=== PATIENT | female | born 1995 | race Caucasian/White ===

== ENCOUNTER 2017-03-29 11:36 | Emergency (ER) | payer BC ==
[~2017-03-29] VITALS: Ht 172.7 cm; Wt 69.6 kg
[~2017-03-29 11:36] MED LIST: FEXO1TAB49 PO; MULT-506 PO
[2017-03-29 11:40] VITALS: TEMP 37.1; Ht 172.7 cm; Wt 69.6 kg
[2017-03-29 11:50] VITALS: O2SAT 99
[2017-03-29] MEDS ORDERED: APRI28 PO (12:07)
[2017-03-29] MEDS ORDERED: KETOROLAC TROMETHAMINE 30 MG/ML VIAL IV STA (12:09)
[2017-03-29] MEDS ORDERED: SODIUM CHLORIDE 0.9% 1000ML 1,000 ML IV STA (12:09)
[2017-03-29 12:38] LABS: BASO % 0.7 %; BASO ABS # 0.07 K/uL (0-0.2); COMPLETE YES; EOS % 2.1 %; HEMATOCRIT 41.2 % (37-47); IG% 0.2 %; LYMPH ABS # 2.54 K/uL (1.2-3.4); MEAN CELL VOLUME 89.4 fL (80-100); MEAN CORPUSCULAR HEMOGLOBIN 29.9 pg (25-34); MEAN CORPUSCULAR HGB CONC 33.5 g/dl (32-36); MONO % 5.4 %; NEUT % 64.6 %; PLATELET COUNT 273 K/uL (130-400); RED BLOOD COUNT 4.61 M/uL (4.2-5.4); WHITE BLOOD COUNT 9.42 K/uL (4.8-10.8)
[2017-03-29 13:00] LABS: BUN/CREATININE RATIO 19.6 (10-20); CALCIUM 9.5 mg/dl (8.5-10.1); CREATININE 0.84 mg/dl (0.60-1.20); POTASSIUM 4.2 mmol/L (3.5-5.1)
[2017-03-29 13:48] LABS: LYME DISEASE AB IGG NEG (NEG); LYME DISEASE AB IGM NEG (NEG)
--- NOTE | 2017-03-29 14:16 | EMERGENCY ROOM VISIT NOTE ---
History Report prepared by Edgar: Teddy Buchanan Under the Supervision of: Paige MontanaO. First contact with patient: 11:58 Chief Complaint: OTHER COMPLAINT Stated Complaint: NUMBNESS IN RT ARM & RT SIDE OF JAW, JOINT PAIN History of Present Illness The patient is a 21 year old female who presents to the Emergency Room with complaints of constant joint pain and numbness in her shoulder starting this morning. The patient additionally states that her heart rate is up more than normal. The patient states that she was sitting earlier when she got the pain and numbness in her shoulder. The patient denies any fever or tick exposure. The patient states that a few years ago she had something similar, and it was due to strep. The patient denies any leg swelling, chest pain, shortness of breath, or sore throat. Source of History: patient Onset: this morning Position: other (right shoulder and global) Quality: numbness Timing: constant Associated Symptoms: No fevers, No chest pain, No SOB Note: Associated symptoms: Increased heart rate Review of Systems See HPI for pertinent positives & negatives. A total of 10 systems reviewed and were otherwise negative. Past Medical & Surgical Medical Problems: (1) Concussion Family History Patient reports no known family medical history. Social History Smoking Status: Never Smoker Alcohol Use: occasionally Drug Use: none Marital Status: single Housing Status: lives with roommate Occupation Status: [employer] student Current/Historical Medications Scheduled Ethinyl Estrad/Desogestrel (Apri), 1 TAB PO DAILY Allergies Coded Allergies: NO KNOWN DRUG ALLERGIES (Verified Allergy, Mild, JUST SEASONAL ALLERGIES, 03/29/17) Uncoded Nonscreenable Allergen (Unverified Allergy, Unknown, HIVES, ) FRUITS & VEGETABLES- HIVES SEASONAL ALLERGIES Uncoded Allergies: FRUITS AND VEGETABLE (Allergy, Mild, ONLY IF RAW GETS HIVES, 10/25/15) Physical Exam Vital Signs Date Time Temp Pulse Resp B/P (MAP) Pulse Ox O2 Delivery O2 Flow Rate FiO2 03/29/17 13:50 72 16 107/61 99 Room Air 03/29/17 12:39 78 03/29/17 11:50 99 Room Air 03/29/17 11:40 37.1 83 16 135/89 99 Room Air Physical Exam CONSTITUTIONAL/VITAL SIGNS: Reviewed / noted above. GENERAL: Non-toxic in appearance. INTEGUMENTARY: Warm, dry, and [place]. HEAD: Normocephalic. EYES: without scleral icterus or trauma. ENT/OROPHARYNX: clear and moist. LYMPHADENOPATHY/NECK: Is supple without lymphadenopathy or meningismus. RESPIRATORY: Lungs clear and equal. CARDIOVASCULAR: Regular rate and rhythm. GI/ABDOMEN: Soft and nontender. No organomegaly or pulsatile mass. No rebound or guarding. Normal bowel sounds. EXTREMITIES: Warm and well perfused. BACK: No CVA tenderness. NEUROLOGICAL: Intact without focal deficits. PSYCHIATRIC: normal affect. MUSCULOSKELETAL: Normally developed with good muscle tone. Medical Decision & Procedures Laboratory Results 03/29/17 12:23 Red Blood Count 4.61, Mean Corpuscular Volume 89.4, Mean Corpuscular Hemoglobin 29.9, Mean Corpuscular Hemoglobin Concent 33.5, Mean Platelet Volume 9.0, Neutrophils (%) (Auto) 64.6, Lymphocytes (%) (Auto) 27.0, Monocytes (%) (Auto) 5.4, Eosinophils (%) (Auto) 2.1, Basophils (%) (Auto) 0.7, Neutrophils # (Auto) 6.08, Lymphocytes # (Auto) 2.54, Monocytes # (Auto) 0.51, Eosinophils # (Auto) 0.20, Basophils # (Auto) 0.07 03/29/17 12:23 Test 03/29/17 12:23 White Blood Count 9.42 K/uL (4.8-10.8) Red Blood Count 4.61 M/uL (4.2-5.4) Hemoglobin 13.8 g/dL (12.0-16.0) Hematocrit 41.2 % (37-47) Mean Corpuscular Volume 89.4 fL (80-100) Mean Corpuscular Hemoglobin 29.9 pg (25-34) Mean Corpuscular Hemoglobin Concent 33.5 g/dl (32-36) Platelet Count 273 K/uL (130-400) Mean Platelet Volume 9.0 fL (7.4-10.4) Neutrophils (%) (Auto) 64.6 % Lymphocytes (%) (Auto) 27.0 % Monocytes (%) (Auto) 5.4 % Eosinophils (%) (Auto) 2.1 % Basophils (%) (Auto) 0.7 % Neutrophils # (Auto) 6.08 K/uL (1.4-6.5) Lymphocytes # (Auto) 2.54 K/uL (1.2-3.4) Monocytes # (Auto) 0.51 K/uL (0.11-0.59) Eosinophils # (Auto) 0.20 K/uL (0-0.5) Basophils # (Auto) 0.07 K/uL (0-0.2) RDW Standard Deviation 38.7 fL (36.4-46.3) RDW Coefficient of Variation 12.1 % (11.5-14.5) Immature Granulocyte % (Auto) 0.2 % Immature Granulocyte # (Auto) 0.02 K/uL (0.00-0.02) Erythrocyte Sedimentation Rate 14 mm/hr (0-21) Anion Gap 5.0 mmol/L (3-11) Est Creatinine Clear Calc Drug Dose 107.7 ml/min Estimated GFR () 116.0 Estimated GFR (Non- 100.1 BUN/Creatinine Ratio 19.6 (10-20) Calcium Level 9.5 mg/dl (8.5-10.1) Lyme Disease IgG Antibody NEG (NEG) Lyme Disease IgM Antibody NEG (NEG) Laboratory results as stated above per my review. Medications Administered Medications (Trade) Dose Ordered Sig/Valeriy Route Start Time Stop Time Status Last Admin Dose Admin Ketorolac Tromethamine (Toradol Inj) 30 mg NOW STAT IV 03/29/17 12:09 03/29/17 12:12 DC 03/29/17 12:30 30 MG Sodium Chloride 1,000 ml @ 999 mls/hr Q1H1M STAT IV 03/29/17 12:09 03/29/17 13:09 DC 03/29/17 12:29 999 MLS/HR ED Course 1158: Previous medical records were reviewed. The patient was evaluated in room B11. A complete history and physical examination was performed. 1209: Sodium Chloride 1000 ml @ 999 mls/hr IV, Toradol Inj 30mg IV Medical Decision Differential diagnoses include: infectious process, autoimmune disorder, and rheumatologic process. This is a 21-year-old female who presents to the ED with a chief complaint of joint pains. The patient states that she has had up for the last few days. She also knows that her heart rate was increased today. Today her right shoulder was bothering her in addition to joint pains and she came in for evaluation. She states that her arm felt a little numb but its not feeling numb now. The patient's physical exam is completely normal. There are no rashes. She does not have any joint swelling. Studies reveal a normal CBC, normal sedimentation rate, PRP was normal and Lyme disease was negative. The patient's vital signs within normal. She is afebrile. She was told the results. She is felt to be stable for discharge and outpatient follow-up. She is advised to take Tylenol or Motrin for her symptoms. Impression Primary Impression: Joint pain Scribe Attestation The scribe's documentation has been prepared under my direction and personally reviewed by me in its entirety. I confirm that the note above accurately reflects all work, treatment, procedures, and medical decision making performed by me. Departure Information Dispostion Home / Self-Care Referrals No Doctor, Assigned (PCP) Forms HOME CARE DOCUMENTATION FORM, IMPORTANT VISIT INFORMATION, WORK / SCHOOL INSTRUCTIONS Patient Instructions My [facility] Additional Instructions Follow-up with your doctor for further care and evaluation in 1-2 days. Return to the emergency department for worsening or new symptoms or any concerns. You have been examined and treated today on an emergency basis only. This is not a substitute for, or an effort to provide, complete comprehensive medical care. It is impossible to recognize and treat all injuries or illnesses in a single emergency department visit. It is therefore important that you follow up closely with your doctor. Call as soon as possible for an appointment.
[2017-03-29 14:50] VITALS: BP 116/75; PULSE 72; O2SAT 98
== END 2017-03-29 14:52 | disposition home or self-care (01) ==
LOC: C.EDB 11:37
DX: M79.1 Myalgia (principal); Z87.820 Personal history of traumatic brain injury; Z79.899 Other long term (current) drug therapy

== ENCOUNTER → 2017-07-01 | Outpatient (CLI) | payer BC ==
[~2017-07-01] MED LIST changes: +APRI28 PO; -FEXO1TAB49 PO; -MULT-506 PO
== END | disposition home or self-care (01) ==
LOC: C.PATHSPEC 17:56
PROVIDERS: ATTEND Orthopaedic Surgery Sports Medicine
DX: L72.0 Epidermal cyst (principal)